=== PATIENT | male | born 1965 | race African-American/Black ===

== ENCOUNTER 2017-05-30 10:12 | Emergency (ER) | payer BC ==
[~2017-05-30] VITALS: Ht 172.7 cm; Wt 70.3 kg
[2017-05-30 10:00] VITALS: BP 111/86
[2017-05-30 10:39] LABS: EOSINOPHILS % (AUTO) 3.6 % (0.0-3.0); LYMPHOCYTES % (AUTO) 26.2 % (20.0-45.0); MEAN CORPUSCULAR HEMOGLOBIN 29.9 PG (27.0-31.0); MEAN CORPUSCULAR HGB CONC 34.3 G/DL (32.0-36.0); MEAN CORPUSCULAR VOLUME 87 FL (80-99); MEAN PLATELET VOLUME 7.5 FL (6.5-10.1); MONOCYTES % (AUTO) 14.8 % (1.0-10.0); NEUTROPHILS % (AUTO) 53.9 % (45.0-75.0); PLATELET COUNT 160 K/UL (150-450); RED BLOOD COUNT 4.69 M/UL (4.70-6.10); RED CELL DISTRIBUTION WIDTH 13.2 % (11.6-14.8); WHITE BLOOD COUNT 4.1 K/UL (4.8-10.8)
[2017-05-30] MEDS ORDERED: PHENOBARBITAL60 MG ORAL (10:39)
[2017-05-30] MEDS ORDERED: OMEPRAZOLE20 M2 ORAL (10:39)
[2017-05-30] MEDS ORDERED: ASPIR 8181 MG ORAL (10:39)
[2017-05-30] MEDS ORDERED: GABAPENTIN800 MG ORAL (10:39)
[2017-05-30] MEDS ORDERED: SEROQUEL100 MG ORAL (10:39)
[2017-05-30] MEDS ORDERED: ATARAX25 MG ORAL (10:39)
[2017-05-30] MEDS ORDERED: LAMICTAL100 MG ORAL (10:39)
[2017-05-30] MEDS ORDERED: METFORMIN HCL500 M1 ORAL (10:39)
[2017-05-30] MEDS ORDERED: TAMSULOSIN HCL0.4 MG ORAL (10:39)
[2017-05-30 10:40] LABS: BASOPHILS % (AUTO) 1.4 % (0.0-2.0)
[2017-05-30 10:50] LABS: INR 0.9 (0.9-1.1); PROTHROMBIN TIME 9.8 SEC (9.30-11.50)
[2017-05-30 10:58] LABS: ALANINE AMINOTRANSFERASE 16 U/L (3-41); ALBUMIN/GLOBULIN RATIO 1.5 (1.0-2.7); ANION GAP 9 (5-15); ASPARTATE AMINO TRANSFERASE 27 U/L (5-40); CALCIUM 8.5 mg/dL (8.6-10.2); CARBON DIOXIDE 26 mEQ/L (20-30); CHLORIDE 100 mEQ/L (98-107); GLOMERULAR FILTRATION RATE > 60 mL/min (>60); HEMOLYSIS 68; POTASSIUM 4.2 mEQ/L (3.4-4.9); SODIUM 135 mEQ/L (135-145); TOTAL PROTEIN 6.3 g/dL (6.6-8.7); TROPONIN I < 0.30 ng/mL (<=0.30)
[2017-05-30 11:08] LABS: CKMB 4.6 ng/mL (< 6.7)
--- NOTE | 2017-05-30 11:16 | Emergency Room Report ---
History of Present Illness General Chief Complaint: Chest Pain Source: Patient Present Illness HPI This patient presents with chest pain. She states he is currently in a rehabilitation program for methamphetamine. He states that he was just placed into the rehabilitation program yesterday. He states that he went on a methamphetamine binge for about one week. He states that he cannot sleep and just injected methamphetamine. He then overdosed and had to be admitted to a hospital in [facility]. He states that he does have some body aches and nausea. He denies cough or congestion. He denies abdominal pain. He has no other complaints. Allergies: Coded Allergies: No Known Allergies (Unverified , 05/30/17) Patient History Past Medical History: see triage record, DM, HTN, seizures Social History: Reports: alcohol use, drug use, smoking Reviewed Nursing Documentation: PMH: Agreed, PSxH: Agreed Nursing Documentation-PMH Hx Cardiac Problems: Yes Hx Hypertension: Yes Hx Pacemaker: No Hx Asthma: No Hx COPD: No Hx Diabetes: Yes Hx Cancer: No Hx Gastrointestinal Problems: No Hx Dialysis: No History Of Psychiatric Problem: No Hx Cerebrovascular Accident: No Hx Seizures: Yes Review of Systems All Other Systems: negative except mentioned in HPI Physical Exam Vital Signs Date Time Temp Pulse Resp B/P Pulse Ox O2 Delivery O2 Flow Rate FiO2 05/30/17 09:59 98.1 86 16 98 05/30/17 09:59 152/88 05/30/17 10:00 Room Air Sp02 EP Interpretation: reviewed, normal General Appearance: no apparent distress, alert, GCS 15, non-toxic Head: normocephalic, atraumatic Eyes: bilateral eye PERRL, bilateral eye normal inspection ENT: hearing grossly normal, normal pharynx, no angioedema, normal voice Neck: full range of motion, supple/symm/no masses Respiratory: chest non-tender, lungs clear, normal breath sounds, speaking full sentences Cardiovascular #1: regular rate, rhythm, no edema Gastrointestinal: normal bowel sounds, non tender, soft, non-distended, no guarding, no rebound Rectal: deferred Musculoskeletal: back normal, gait/station normal, normal range of motion, non- tender Neurologic: alert, oriented x3, responsive, motor strength/tone normal, sensory intact, speech normal Psychiatric: judgement/insight normal, memory normal, mood/affect normal, no suicidal/homicidal ideation Skin: normal color, no rash, warm/dry, well hydrated Medical Decision Making Diagnostic Impression: Primary Impression: Chest pain ER Course This patient presents with chest pain just prior to arrival. The patient's initial workup is reassuring with a normal troponin. EKG has Q waves in the anterior leads. I am unsure of the acuity of this. I do not have a comparison EKG. The patient has a long history of drug abuse. He has only been clean for 2 days. He is high risk for acute coronary syndrome. I will admit this patient to rule out acute coronary syndrome. He is admitted to telemetry. Labs Test 05/30/17 10:15 05/30/17 10:35 White Blood Count 4.1 K/UL (4.8-10.8) Red Blood Count 4.69 M/UL (4.70-6.10) Hemoglobin 14.0 G/DL (14.2-18.0) Hematocrit 40.9 % (42.0-52.0) Mean Corpuscular Volume 87 FL (80-99) Mean Corpuscular Hemoglobin 29.9 PG (27.0-31.0) Mean Corpuscular Hemoglobin Concent 34.3 G/DL (32.0-36.0) Red Cell Distribution Width 13.2 % (11.6-14.8) Platelet Count 160 K/UL (150-450) Mean Platelet Volume 7.5 FL (6.5-10.1) Neutrophils (%) (Auto) 53.9 % (45.0-75.0) Lymphocytes (%) (Auto) 26.2 % (20.0-45.0) Monocytes (%) (Auto) 14.8 % (1.0-10.0) Eosinophils (%) (Auto) 3.6 % (0.0-3.0) Basophils (%) (Auto) 1.4 % (0.0-2.0) Prothrombin Time 9.8 SEC (9.30-11.50) Prothromb Time International Ratio 0.9 (0.9-1.1) Activated Partial Thromboplast Time 25 SEC (23-33) Sodium Level 135 mEQ/L (135-145) Potassium Level 4.2 mEQ/L (3.4-4.9) Chloride Level 100 mEQ/L (98-107) Carbon Dioxide Level 26 mEQ/L (20-30) Anion Gap 9 (5-15) Blood Urea Nitrogen 10 mg/dL (7-23) Creatinine 1.0 mg/dL (0.7-1.2) Estimat Glomerular Filtration Rate > 60 mL/min (>60) Glucose Level 88 mg/dL (74-106) Calcium Level 8.5 mg/dL (8.6-10.2) Total Bilirubin 0.4 mg/dL (0.0-1.2) Aspartate Amino Transf (AST/SGOT) 27 U/L (5-40) Alanine Aminotransferase (ALT/SGPT) 16 U/L (3-41) Alkaline Phosphatase 50 U/L (40-129) Total Creatine Kinase 345 U/L (38-174) Troponin I < 0.30 ng/mL (<=0.30) Total Protein 6.3 g/dL (6.6-8.7) Albumin 3.8 g/dL (3.5-5.2) Globulin 2.5 g/dL Albumin/Globulin Ratio 1.5 (1.0-2.7) EKG Diagnostic Results Rate: normal Rhythm: other - SR w/ 1st degree AV block. Qwave V1,V2, V3, V4 ST Segments: no acute changes Rhythm Strip Diag. Results EP Interpretation: yes Rate: 70's Rhythm: NSR, no PVC's, no ectopy Chest X-Ray Diagnostic Results Chest X-Ray Diagnostic Results : Chest X-Ray Ordered: Yes # of Views/Limited/Complete: 1 View Indication: Chest Pain EP Interpretation: Yes Interpretation: no consolidation, no effusion, no pneumothorax, no acute cardiopulmonary disease Impression: No acute disease Interpreting ER Provider: Cliff Last Vital Signs Date Time Temp Pulse Resp B/P Pulse Ox O2 Delivery O2 Flow Rate FiO2 05/30/17 10:05 69 18 Room Air 05/30/17 10:00 98.9 111/86 100 Disposition: ADMITTED INPATIENT Condition: Stable Referrals: NOT CHOSEN GEOVANY/,REFERRING (PCP) ANALY BUSH D.O. May 30, 2017 11:16
[2017-05-30 12:00] VITALS: BP 111/80
[2017-05-30 14:00] VITALS: BP 109/92
[2017-05-30] MEDS ORDERED: PHENobarbital Elixir 30mg/7.5ml ORAL ONE (14:30)
[2017-05-30 15:55] VITALS: BP 109/92
--- NOTE | 2017-05-30 16:20 | Diagnostic Imaging Report ---
Indication: Chest pain Technique: One view of the chest Comparison: none Findings: Lungs and pleural spaces are clear. Heart size is normal. Impression: No acute process
== END 2017-05-30 15:55 | disposition left against medical advice (07) ==
LOC: EDBD 10:12 → EMR 10:46 → UNDOADMIN 11:45 → 2E 11:45 → EDBEDREQ 12:27
DX: R07.9 Chest pain, unspecified (principal); F15.90 Other stimulant use, unspecified, uncomplicated; I10 Essential (primary) hypertension; E11.9 Type 2 diabetes mellitus without complications; F17.200 Nicotine dependence, unspecified, uncomplicated; I44.0 Atrioventricular block, first degree
CPT/HCPCS: 36415; 71010; 80053; 80300; 82550; 82553; 84484; 85025; 85610; 85730; 93005; 99283

== ENCOUNTER 2017-06-03 00:23 | Emergency (ER) | payer BC ==
[~2017-06-03] VITALS: Ht 177.8 cm; Wt 77.1 kg
[~2017-06-03 00:23] MED LIST: ASPIR 8181 MG ORAL; ATARAX25 MG ORAL; GABAPENTIN800 MG ORAL; LAMICTAL100 MG ORAL; METFORMIN HCL500 M1 ORAL; OMEPRAZOLE20 M2 ORAL; PHENOBARBITAL60 MG ORAL; SEROQUEL100 MG ORAL; TAMSULOSIN HCL0.4 MG ORAL
--- NOTE | 2017-06-03 00:41 | Emergency Room Report ---
History of Present Illness General Chief Complaint: To Be Triaged Source: Patient Present Illness HPI Is a 51-year-old male with a history drug abuse. He was seen here 2 days ago and was admitted for chest pain from drug abuse. He sat out AMA. He said he hasn't slept for 4 days. He tried to check into a rehabilitation place. He said that he be a medical clearance in order to go there. He went to a hospital in [facility] and was told that they do not do medical clearance. He said that he went to urgent care. Was told the same thing. He then came here. He denied any symptoms right now. Denies any fever chills denies any chest pain. No other complaint. He does not know the number to the rehabilitation place. He doesn't know the name. He tell me that is in the system. I should know this. Allergies: Coded Allergies: CHLORDIAZEPOXIDE (Verified Allergy, Unknown, 06/03/17) Patient History Past Medical History: see triage record, old chart reviewed Past Surgical History: other Pertinent Family History: none Social History: Reports: drug use Immunizations: other Reviewed Nursing Documentation: PMH: Agreed, PSxH: Agreed Nursing Documentation-PMH Hx Cardiac Problems: Yes Hx Hypertension: Yes Hx Pacemaker: No Hx Asthma: No Hx COPD: No Hx Diabetes: Yes Hx Cancer: No Hx Gastrointestinal Problems: No Hx Dialysis: No Hx Cerebrovascular Accident: No Hx Seizures: Yes Review of Systems Eye: Denies: blurred vision, eye pain ENT: Denies: ear pain, nose congestion, throat swelling Respiratory: Denies: cough, shortness of breath Cardiovascular: Denies: chest pain, palpitations Gastrointestinal: Denies: abdominal pain, diarrhea, nausea, vomiting Musculoskeletal: Denies: back pain, joint pain Skin: Denies: rash Neurological: Denies: headache, numbness Endocrine: Denies: increased thirst, increased urine Hematologic/Lymphatic: Denies: easy bruising All Other Systems: negative except mentioned in HPI Physical Exam Sp02 EP Interpretation: reviewed, normal General Appearance: well appearing, no apparent distress, alert Head: normocephalic, atraumatic Eyes: bilateral eye EOMI, bilateral eye PERRL ENT: hearing grossly normal, normal pharynx Neck: full range of motion, supple, no meningismus Respiratory: chest non-tender, lungs clear, normal breath sounds Cardiovascular #1: regular rate, rhythm, no murmur Gastrointestinal: normal bowel sounds, non tender, no mass, no organomegaly, no bruit, non-distended Musculoskeletal: back normal, gait/station normal, normal range of motion Neurologic: alert, oriented x3 Psychiatric: mood/affect normal Skin: warm/dry Medical Decision Making Diagnostic Impression: Primary Impression: Drug abuse ER Course Patient was seen here a few days ago. Labs are unremarkable. He has no complaints right now. I see no need to do any further testing. Status: unchanged Disposition: HOME, SELF-CARE Condition: Stable Additional Instructions: Abstain from drugs and alcohol. Followup with rehabilitation. Followup with your Dr. within 7 days. Return if symptom worsen. ELEONORA ROSA M.D. Jun 03, 2017 00:41
[2017-06-03 01:32] VITALS: BP 126/82
== END 2017-06-03 02:00 | disposition home or self-care (01) ==
LOC: EMR 01:33
DX: F19.10 Other psychoactive substance abuse, uncomplicated (principal); Z88.8 Allergy status to other drugs, medicaments and biological substances; I10 Essential (primary) hypertension; E11.9 Type 2 diabetes mellitus without complications
CPT/HCPCS: 99282